=== PATIENT | female | born 1950 ===

== ENCOUNTER 2018-05-05 14:12 | Inpatient (IN) | payer OTHER ==
[~2018-05-05] VITALS: Ht 149.9 cm; Wt 54.0 kg
[~2018-05-05 14:12] MED LIST: NABUMETONE750 MG PO; ORPH100T PO
[2018-05-05] MEDS ORDERED: AMARYL 4 MG (15:12)
[2018-05-05] MEDS ORDERED: LANTUS SOL100 UNIT/1 (15:13)
[2018-05-05] MEDS ORDERED: HUMULIN 70100 UNIT/2 (15:13)
[2018-07-06] MEDS ORDERED: GLIMEPIRIDE4 MG PO (09:58)
== END 2018-08-27 17:43 | disposition expired | DRG 326 ==
LOC: ER 14:12 → SEC-K 18:03 → ICU 18:03 → SURH 18:03 → ICU 06-01 12:42 → MEDJ 06-11 21:04 → ICU 06-15 11:34 → SURH 07-21 17:01 → MEDI 07-21 17:01 → SURH 07-21 17:01 → ICU 08-11 21:34
PROVIDERS: Surgery
PROC: 0DTJ4ZZ Resection of Appendix, Percutaneous Endoscopic Approach (ICD-10-PCS; 2018-05-05)
PROC: BW25Y0Z Computerized Tomography (CT Scan) of Chest, Abdomen and Pelvis using Other Contrast, Unenhanced and Enhanced (ICD-10-PCS; 2018-05-05)
PROC: BW25Y0Z Computerized Tomography (CT Scan) of Chest, Abdomen and Pelvis using Other Contrast, Unenhanced and Enhanced (ICD-10-PCS; 2018-05-08)
PROC: 3E0436Z Introduction of Nutritional Substance into Central Vein, Percutaneous Approach (ICD-10-PCS; 2018-05-14)
PROC: BW25Y0Z Computerized Tomography (CT Scan) of Chest, Abdomen and Pelvis using Other Contrast, Unenhanced and Enhanced (ICD-10-PCS; 2018-05-14)
PROC: 0W9J30Z Drainage of Pelvic Cavity with Drainage Device, Percutaneous Approach (ICD-10-PCS; 2018-05-15)
PROC: 02HV33Z Insertion of Infusion Device into Superior Vena Cava, Percutaneous Approach (ICD-10-PCS; 2018-05-15)
PROC: 8E0ZXY6 Isolation (ICD-10-PCS; 2018-05-15)
PROC: BW25Y0Z Computerized Tomography (CT Scan) of Chest, Abdomen and Pelvis using Other Contrast, Unenhanced and Enhanced (ICD-10-PCS; 2018-05-25)
PROC: 4A033R1 Measurement of Arterial Saturation, Peripheral, Percutaneous Approach (ICD-10-PCS; 2018-05-26)
PROC: 3E0F7GC Introduction of Other Therapeutic Substance into Respiratory Tract, Via Natural or Artificial Opening (ICD-10-PCS; 2018-05-26)
PROC: B246ZZZ Ultrasonography of Right and Left Heart (ICD-10-PCS; 2018-05-26)
PROC: 30233N1 Transfusion of Nonautologous Red Blood Cells into Peripheral Vein, Percutaneous Approach (ICD-10-PCS; 2018-05-28)
PROC: BW25Y0Z Computerized Tomography (CT Scan) of Chest, Abdomen and Pelvis using Other Contrast, Unenhanced and Enhanced (ICD-10-PCS; 2018-05-31)
PROC: 5A1955Z Respiratory Ventilation, Greater than 96 Consecutive Hours (ICD-10-PCS; 2018-06-01)
PROC: 0BH17EZ Insertion of Endotracheal Airway into Trachea, Via Natural or Artificial Opening (ICD-10-PCS; 2018-06-01)
PROC: 05HM33Z Insertion of Infusion Device into Right Internal Jugular Vein, Percutaneous Approach (ICD-10-PCS; 2018-06-01)
PROC: B543ZZA Ultrasonography of Right Jugular Veins, Guidance (ICD-10-PCS; 2018-06-01)
PROC: 5A1D70Z Performance of Urinary Filtration, Intermittent, Less than 6 Hours Per Day (ICD-10-PCS; 2018-06-02)
PROC: CD171ZZ Planar Nuclear Medicine Imaging of Gastrointestinal Tract using Technetium 99m (Tc-99m) (ICD-10-PCS; 2018-06-12)
PROC: B54MZZZ Ultrasonography of Right Upper Extremity Veins (ICD-10-PCS; 2018-06-14)
PROC: 3E0G8GC Introduction of Other Therapeutic Substance into Upper GI, Via Natural or Artificial Opening Endoscopic (ICD-10-PCS; 2018-06-15)
PROC: 0W3P8ZZ Control Bleeding in Gastrointestinal Tract, Via Natural or Artificial Opening Endoscopic (ICD-10-PCS; 2018-06-15)
PROC: 3E0G8GC Introduction of Other Therapeutic Substance into Upper GI, Via Natural or Artificial Opening Endoscopic (ICD-10-PCS; 2018-06-20)
PROC: 0W3P8ZZ Control Bleeding in Gastrointestinal Tract, Via Natural or Artificial Opening Endoscopic (ICD-10-PCS; 2018-06-20)
PROC: 5A1955Z Respiratory Ventilation, Greater than 96 Consecutive Hours (ICD-10-PCS; 2018-06-20)
PROC: 0BH17EZ Insertion of Endotracheal Airway into Trachea, Via Natural or Artificial Opening (ICD-10-PCS; 2018-06-20)
PROC: 30233K1 Transfusion of Nonautologous Frozen Plasma into Peripheral Vein, Percutaneous Approach (ICD-10-PCS; 2018-06-20)
PROC: 3E0436Z Introduction of Nutritional Substance into Central Vein, Percutaneous Approach (ICD-10-PCS; 2018-06-21)
PROC: CD171ZZ Planar Nuclear Medicine Imaging of Gastrointestinal Tract using Technetium 99m (Tc-99m) (ICD-10-PCS; 2018-06-22)
PROC: 5A09557 Assistance with Respiratory Ventilation, Greater than 96 Consecutive Hours, Continuous Positive Airway Pressure (ICD-10-PCS; 2018-06-25)
PROC: CD171ZZ Planar Nuclear Medicine Imaging of Gastrointestinal Tract using Technetium 99m (Tc-99m) (ICD-10-PCS; 2018-06-29)
PROC: 0W3P0ZZ Control Bleeding in Gastrointestinal Tract, Open Approach (ICD-10-PCS; 2018-06-30)
PROC: 5A1955Z Respiratory Ventilation, Greater than 96 Consecutive Hours (ICD-10-PCS; 2018-06-30)
PROC: 0BH17EZ Insertion of Endotracheal Airway into Trachea, Via Natural or Artificial Opening (ICD-10-PCS; 2018-06-30)
PROC: 0D160Z9 Bypass Stomach to Duodenum, Open Approach (ICD-10-PCS; principal; 2018-06-30 07:15)
PROC: CD171ZZ Planar Nuclear Medicine Imaging of Gastrointestinal Tract using Technetium 99m (Tc-99m) (ICD-10-PCS; 2018-07-02)
PROC: 05PYX3Z Removal of Infusion Device from Upper Vein, External Approach (ICD-10-PCS; 2018-07-03)
PROC: BW24ZZZ Computerized Tomography (CT Scan) of Chest and Abdomen (ICD-10-PCS; 2018-07-16)
PROC: 4A12X4Z Monitoring of Cardiac Electrical Activity, External Approach (ICD-10-PCS; 2018-07-21)
PROC: BW40ZZZ Ultrasonography of Abdomen (ICD-10-PCS; 2018-07-23)
PROC: BB4BZZZ Ultrasonography of Pleura (ICD-10-PCS; 2018-08-08)
PROC: 0W993ZX Drainage of Right Pleural Cavity, Percutaneous Approach, Diagnostic (ICD-10-PCS; 2018-08-09)
PROC: B246ZZZ Ultrasonography of Right and Left Heart (ICD-10-PCS; 2018-08-11)
PROC: 5A09457 Assistance with Respiratory Ventilation, 24-96 Consecutive Hours, Continuous Positive Airway Pressure (ICD-10-PCS; 2018-08-11)
PROC: 5A1955Z Respiratory Ventilation, Greater than 96 Consecutive Hours (ICD-10-PCS; 2018-08-12)
PROC: 0BH17EZ Insertion of Endotracheal Airway into Trachea, Via Natural or Artificial Opening (ICD-10-PCS; 2018-08-12)
PROC: BW40ZZZ Ultrasonography of Abdomen (ICD-10-PCS; 2018-08-24)
PROC: B246ZZZ Ultrasonography of Right and Left Heart (ICD-10-PCS; 2018-08-26)
PROC: 30233R1 Transfusion of Nonautologous Platelets into Peripheral Vein, Percutaneous Approach (ICD-10-PCS; 2018-08-27)
DX: K35.33 Acute appendicitis with perforation, localized peritonitis, and gangrene, with abscess (principal); J95.821 Acute postprocedural respiratory failure; J18.8 Other pneumonia, unspecified organism; K26.4 Chronic or unspecified duodenal ulcer with hemorrhage; J81.0 Acute pulmonary edema; T81.12XA Postprocedural septic shock, initial encounter; D65 Disseminated intravascular coagulation [defibrination syndrome]; A41.59 Other Gram-negative sepsis; I50.23 Acute on chronic systolic (congestive) heart failure; J95.89 Other postprocedural complications and disorders of respiratory system, not elsewhere classified; J98.11 Atelectasis; J91.8 Pleural effusion in other conditions classified elsewhere; N17.8 Other acute kidney failure; B37.89 Other sites of candidiasis; E87.0 Hyperosmolality and hypernatremia; K56.0 Paralytic ileus; K91.89 Other postprocedural complications and disorders of digestive system; R04.2 Hemoptysis; J95.831 Postprocedural hemorrhage of a respiratory system organ or structure following other procedure; K92.1 Melena; B37.0 Candidal stomatitis; K22.10 Ulcer of esophagus without bleeding; I97.191 Other postprocedural cardiac functional disturbances following other surgery; D62 Acute posthemorrhagic anemia; T81.44XA Sepsis following a procedure, initial encounter; B37.49 Other urogenital candidiasis; I97.131 Postprocedural heart failure following other surgery; I46.8 Cardiac arrest due to other underlying condition; Z79.4 Long term (current) use of insulin; E11.42 Type 2 diabetes mellitus with diabetic polyneuropathy; E11.65 Type 2 diabetes mellitus with hyperglycemia; E87.6 Hypokalemia; N99.0 Postprocedural (acute) (chronic) kidney failure; B95.62 Methicillin resistant Staphylococcus aureus infection as the cause of diseases classified elsewhere; D64.89 Other specified anemias; I10 Essential (primary) hypertension; R00.0 Tachycardia, unspecified; K80.80 Other cholelithiasis without obstruction; B96.1 Klebsiella pneumoniae [K. pneumoniae] as the cause of diseases classified elsewhere; Z16.12 Extended spectrum beta lactamase (ESBL) resistance; Z66 Do not resuscitate; B96.6 Bacteroides fragilis [B. fragilis] as the cause of diseases classified elsewhere; B95.4 Other streptococcus as the cause of diseases classified elsewhere; B96.5 Pseudomonas (aeruginosa) (mallei) (pseudomallei) as the cause of diseases classified elsewhere; N20.0 Calculus of kidney; Z78.1 Physical restraint status